=== PATIENT | male | born 1995 | race Caucasian/White ===

== ENCOUNTER → 2020-07-11 | Outpatient (CLI) | payer OTHER | END | disposition home or self-care (01) | LOC: RAD 17:01 | PROVIDERS: ATTEND Nurse Practitioner Family | DX: R10.9 Unspecified abdominal pain (principal) ==

== ENCOUNTER → 2020-08-08 | Outpatient (CLI) | payer OTHER | END | disposition home or self-care (01) | LOC: CT 08:54 | PROVIDERS: ATTEND Family Medicine | DX: K59.00 Constipation, unspecified (principal); R19.01 Right upper quadrant abdominal swelling, mass and lump ==